=== PATIENT | female | born 1950 | race Caucasian/White ===

== ENCOUNTER 2024-06-30 11:19 | Emergency (ER) | payer MEDICARE ==
[~2024-06-30] VITALS: Ht 142.2 cm; Wt 68.0 kg
[2024-06-30 11:20] VITALS: BP_SYST 144; PULSE 88; RESP 19; TEMP 98.7; O2SAT 98
[2024-06-30] MEDS: MORPHINE 2 MG/ML INJ. SYRINGE IM ONE (11:59)
[2024-06-30] MEDS ORDERED: LIDO1ADH91 ID (13:20)
[2024-06-30 13:41] VITALS: BP_SYST 144; PULSE 88; RESP 19; TEMP 98.7; O2SAT 98
== END 2024-06-30 13:41 | disposition home or self-care (01) ==
LOC: SED 11:19
DX: S29.012A Strain of muscle and tendon of back wall of thorax, initial encounter (principal); I10 Essential (primary) hypertension; Z88.0 Allergy status to penicillin; Z79.899 Other long term (current) drug therapy; W22.8XXA Striking against or struck by other objects, initial encounter; Y93.89 Activity, other specified; Y92.89 Other specified places as the place of occurrence of the external cause; Y99.8 Other external cause status
CPT/HCPCS: 99285; 72128; 96372; J2270